=== PATIENT | male | born 1985 | race Caucasian/White ===

== ENCOUNTER 2024-10-16 19:44 | Emergency (ER) | payer BC, OTHER, SELFPAY ==
[2024-10-16 19:57] VITALS: BP 171/84; PULSE 117; RESP 18; TEMP 36.7; O2SAT 99; BMI 30.7
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
[2024-10-16] MEDS: DIPHTH,PERTUSS(ACELL),TET VAC 0.5 ML VIAL IMi (20:04)
== END 2024-10-16 20:12 ==
PROVIDERS: Emergency Provider Emergency Medicine
DX: Z02.89 Encounter for other administrative examinations (principal); S61.206A Unspecified open wound of right little finger without damage to nail, initial encounter; V89.2XXA Person injured in unspecified motor-vehicle accident, traffic, initial encounter; Y92.410 Unspecified street and highway as the place of occurrence of the external cause; Z23 Encounter for immunization
CPT/HCPCS: 90471; 90715; 99282